=== PATIENT | female | born 1985 | race Caucasian/White ===

== ENCOUNTER 2017-11-20 18:27 | Emergency (ER) | payer SELFPAY ==
[~2017-11-20] VITALS: Ht 162.6 cm; Wt 70.5 kg
[~2017-11-20 18:27] MED LIST: ASPIRIN 32325 MG/TA1 PO; BCP TD; IBU400 MG PO; MOTRIN 200200 MG/TAB PO; PRENATAL1 TA3 PO; SPRINTEC 35 MCG1 TAB PO; TYLENOL 325MG325 MG PO; ZANTAC 7575 MG PO; ZOFRAN 4MG T4 MG/TAB PO; ZOFRAN8 MG PO
[2017-11-20 18:30] VITALS: BP 129/89; TEMP 98.2
[2017-11-20 19:31] VITALS: PULSE 88
== END 2017-11-20 19:31 | disposition home or self-care (01) ==
LOC: COL.ER 18:27
DX: K29.70 Gastritis, unspecified, without bleeding (principal); F17.210 Nicotine dependence, cigarettes, uncomplicated; Z90.49 Acquired absence of other specified parts of digestive tract

== ENCOUNTER 2021-05-28 13:34 | Inpatient (IN) | payer BC ==
[~2021-05-28] VITALS: Ht 12.7 cm; Wt 63.6 kg
[2021-05-28 14:46] LABS: BASO % 0.2 % (0.0-2.0); EOS # 0.1 K/mm3 (0.0-0.7); EOS % 0.3 % (0.0-4.0); GRAN % 83.9 % (42.2-75.2); LYMPH # 1.6 K/mm3 (1.2-3.4); LYMPH % 7.8 % (20.0-51.0); MEAN CELL VOLUME 97 fl (80.0-100.0); MEAN CORPUSCULAR HGB CONC 32 g/dl (33.0-37.0); MEAN PLATELET VOLUME 9.9 fl (7.4-10.4); MONO # 1.5 K/mm3 (0.1-0.6); MONO % 7.2 % (1.7-9.3); PLATELET COUNT 273 K/mm3 (130-400); RED BLOOD COUNT 2.83 M/mm3 (4.10-5.30); REDCELL DISTRIBUTION WIDTH-CV 20.7 % (11.5-14.5)
[2021-05-28 14:52] LABS: HEMATOCRIT 27.3 % (37.0-47.0); HEMOGLOBIN 8.8 g/dl (12.5-16.0); MEAN CORPUSCULAR HEMOGLOBIN 31 pg (27-31)
[2021-05-28 15:09] LABS: ALBUMIN 2.4 gm/dL (3.5-5.0); CALCIUM 8.1 mg/dL (8.4-10.2); CREATININE, serum 0.6 mg/dL (0.57-1.11); POTASSIUM 3.8 mmol/L (3.5-4.5); TOTAL PROTEIN 7.4 gm/dL (6.2-8.1)
[2021-05-28 15:20] LABS: BILIRUBIN,TOTAL 3.7 mg/dL (0.2-1.2)
[2021-05-28 16:24] LABS: INR 2.5 (0.8-3.0); PROTHROMBIN TIME 27.5 SECONDS (9.7-12.8)
[2021-05-28 16:24] LABS: COLLECTION METHOD CLEAN CATCH
[2021-05-28 16:39] LABS: MUCOUS Present (NOT PRESENT); PH 5 (5-8); URINE APPEARANCE Hazy (CLEAR/HAZY); URINE BACTERIA None Seen /hpf (NONE SEEN); URINE BILIRUBIN Negative (NEGATIVE); URINE BLOOD Negative (NEGATIVE); URINE COLOR Amber (YELLOW); URINE GLUCOSE Negative (NEGATIVE); URINE KETONE Negative (NEGATIVE); URINE LEUKOCYTE ESTERASE Negative (NEGATIVE); URINE NITRATE Negative (NEGATIVE); URINE PROTEIN(semi-quant) Negative (NEGATIVE)
[2021-05-28 16:43] LABS: TRICYCLIC ANTIDEPRESS URINE NEGATIVE
[2021-05-28] MEDS ORDERED: ATIVAN 0.50.5 MG/TAB PO (18:33)
[2021-05-28] MEDS ORDERED: AMOXICILLI250 MG/51 PO (18:34)
[2021-05-28 19:54] VITALS: BP 98/58; PULSE 72; TEMP 98.6
[2021-05-28] MEDS ORDERED: PROTONIX20 MG PO (20:23)
[2021-05-28 22:15] VITALS: BP 99/63; PULSE 110; TEMP 98.4
[2021-05-29] VITALS (12 sets, daily range): BP systolic 83–109; BP diastolic 43–62; PULSE 85–104; TEMP 97.7–98.8
--- NOTE | 2021-05-29 00:21 | NUR ---
Pt recieved prn ativan as ordered for scoring a 5 on the CIWA scale, Later around 2229, the patient was resting, but continued to complain of significant right sided pain and requested pain medication. Administered the prn morphine per orders and pt has been resting since. Vital signs were re-assessed and pt was satting at 78%, placed pt on 3L NC and she is not satting at 95%. Pt is sleepy, but is alert and oriented to speech when woken up. Told pt to take deep breaths and she followed commands. Pt's BP continues to run soft since coming up to the floor. Notified the provider of the vital signs, and the provider stated to leave the pt on 3L NC for the time being. No new medications will be administered at this time. Will continue to frequently monitor the pt's vital signs and titrate oxygen as needed.
--- NOTE | 2021-05-29 00:44 | NUR ---
Re-assessed Pt. Continues to sat at 95% on 3L NC. Respiration rate is 16. Pt is aleep, but is oriented alert and oriented when awoken, just drowsy. Will continue to re-assess and titrate oxygen as needed.
--- NOTE | 2021-05-29 02:08 | NUR ---
Pt remains on 3L NC. Satting at 93-95%. Still sleeping, but easily arousable to voice. Alert and oriented when awake. Repositioned pt in bed and she still cries of pain when she is moved. Refused to let us touch her right side. States she could barely turn to grab her water cup and began to cry. Pt resting back asleep now and appears more comfortable once repositioned. Will continue to monitor.
--- NOTE | 2021-05-29 04:07 | NUR ---
Pt remains on 3L NC, satting at 93-95% still. BP still running soft, systolic is 90's and diastolic is 40-60's. Pt denies dizziness or lightheadedness. Alert and oriented when awoken and is easily arrousable. RR is 16. Will continue to monitor.
--- NOTE | 2021-05-29 04:14 | NUR ---
Notified provider about pt's 90/48 BP. Discussed that the pt's pressures have remained soft throughout the evening, but that the pt denies SOB/lightheadedness/dizziness. No changes have been ordered. Will continue to monitor pt.
--- NOTE | 2021-05-29 05:02 | NUR ---
No new events overnight. Pt is still sleepy, but is easily aroused by voice and is alert and oriented when awake. When pt is awake, she continues to moan and cry in regards to her shoulder pain. Mood is still labile when awake. Pt goes from crying to irritable to happy. Prn ativan and morphine were administered only 1x throughout the shift at 2100 and 2230. Pt remains on 3L NC, satting at 93-95%. CIWA scoring continues every 2 hours. Pt has been scoring at a 3 this morning, whereas she scored at a 5 from when she came up from the ED. Vital signs have remained WNL. HR ranges from 90-100. BP's have ran soft overnight, provider was made aware, but pt has remained asymptomatic. Will continue to monitor pt and will continue to score CIWA every 2 hours.
[2021-05-29 07:19] LABS: BASO % 0.2 % (0.0-2.0); EOS # 0.1 K/mm3 (0.0-0.7); EOS % 0.7 % (0.0-4.0); GRAN # 12.7 K/mm3 (1.4-6.5); GRAN % 81.7 % (42.2-75.2); LYMPH # 1.7 K/mm3 (1.2-3.4); LYMPH % 10.6 % (20.0-51.0); MEAN CELL VOLUME 95 fl (80.0-100.0); MEAN CORPUSCULAR HGB CONC 32 g/dl (33.0-37.0); MEAN PLATELET VOLUME 9.9 fl (7.4-10.4); MONO % 6.3 % (1.7-9.3); PLATELET COUNT 239 K/mm3 (130-400); RED BLOOD COUNT 2.55 M/mm3 (4.10-5.30); REDCELL DISTRIBUTION WIDTH-CV 20.6 % (11.5-14.5)
[2021-05-29 07:24] LABS: HEMATOCRIT 24.3 % (37.0-47.0); HEMOGLOBIN 7.7 g/dl (12.5-16.0); MEAN CORPUSCULAR HEMOGLOBIN 30 pg (27-31)
[2021-05-29 07:27] LABS: INR 2.4 (0.8-3.0); PROTHROMBIN TIME 27.2 SECONDS (9.7-12.8)
[2021-05-29 07:43] LABS: BILIRUBIN,DIRECT 2.1 mg/dL (0.0-0.5); CALCIUM 7.8 mg/dL (8.4-10.2); CREATININE, serum 0.52 mg/dL (0.57-1.11); POTASSIUM 3.1 mmol/L (3.5-4.5); TOTAL PROTEIN 6.3 gm/dL (6.2-8.1)
--- NOTE | 2021-05-29 11:10 | NUR ---
SW met with patient to complete intake. Patient states that she lives with her John [phone]. Patient states that she does not utilize DME and is independent with ADL's. Patient states that her PCP is Dr. Tinoco and pharmacy is [facility]. Patient states that she has previously appointed a DPOA/HC who is Lindsay Daniels. Patient states that her plan is to return to her [place], and has not questions or concerns in its regards. SW will continue to follow. DC plan: home
--- NOTE | 2021-05-29 18:38 | NUR ---
PATIENT TEARFUL THROUGHOUT THE DAY D/T FAMILY ISSUES AND PAIN. OB CONSULTED AND WILL SEE PATIENT TONIGHT.
--- NOTE | 2021-05-29 19:15 | NUR ---
Initial shift assessment done- Dr. Díaz here to remove IUD- he had all his supplies- help reposition patient- removed IUD without any issues- no bleeding noted- pt was given a percocet per Dr. Díaz one time order,, pt states feeling better now that the IUD is out. Abd remains very rounded, semi firm- going for paracentesis tomorrow. Emotional- teary at times, talking about her family situation. States is having some right shoulder/arm pain-a sling ordered-will need to get on days.
[2021-05-30 00:09] VITALS: BP 98/54; PULSE 85; TEMP 98.5
[2021-05-30 04:32] VITALS: BP 97/51; PULSE 78; TEMP 97.8
--- NOTE | 2021-05-30 05:23 | NUR ---
Quiet night- still becomes very emotional when nurse in room, VSS, was medicated just once this shift with morphine for pain- states pain in abd, right arm, shoulder- up to bathroom to void with assistance.
[2021-05-30 07:37] VITALS: BP 91/49; PULSE 90; TEMP 98.1
--- NOTE | 2021-05-30 10:23 | NUR ---
Patient sitting on edge of bed upon entering the room. Wanting to know when she will be going home. Patient informed that after paracentesis, they will usually need to stay overnight for monitoring. Patient became tearful, but agreed to the procedure and signed consent. Patient requested PRN morphine and ativan. Patient c/o pain in right shoulder and at IV site.
--- NOTE | 2021-05-30 10:38 | NUR ---
Initial visit; Parents present, Youth Counselor offered God's blessings and left card. Patient very mannerly though decliend spiritual care.
[2021-05-30 10:59] LABS: BASO % 0.2 % (0.0-2.0); EOS # 0.1 K/mm3 (0.0-0.7); EOS % 0.5 % (0.0-4.0); GRAN # 11.2 K/mm3 (1.4-6.5); GRAN % 83.9 % (42.2-75.2); HEMATOCRIT 25.2 % (37.0-47.0); HEMOGLOBIN 8.2 g/dl (12.5-16.0); LYMPH # 1.2 K/mm3 (1.2-3.4); LYMPH % 8.7 % (20.0-51.0); MEAN CELL VOLUME 93 fl (80.0-100.0); MEAN CORPUSCULAR HEMOGLOBIN 30 pg (27-31); MEAN CORPUSCULAR HGB CONC 33 g/dl (33.0-37.0); MEAN PLATELET VOLUME 9.4 fl (7.4-10.4); MONO # 0.8 K/mm3 (0.1-0.6); MONO % 6.2 % (1.7-9.3); PLATELET COUNT 240 K/mm3 (130-400); RED BLOOD COUNT 2.71 M/mm3 (4.10-5.30); REDCELL DISTRIBUTION WIDTH-CV 19.9 % (11.5-14.5)
[2021-05-30 11:07] LABS: INR 2.6 (0.8-3.0); PROTHROMBIN TIME 28.8 SECONDS (9.7-12.8)
[2021-05-30 11:13] LABS: CALCIUM 8.1 mg/dL (8.4-10.2); CREATININE, serum 0.5 mg/dL (0.57-1.11); POTASSIUM 3.1 mmol/L (3.5-4.5)
[2021-05-30 11:54] VITALS: BP 103/62; PULSE 93; TEMP 97.9
[2021-05-30 12:35] LABS: PERITONEAL -POLYMORPHONUCLEAR 23.4 % (0-25)
[2021-05-30 15:27] VITALS: BP 99/51; PULSE 100; TEMP 98.4
--- NOTE | 2021-05-30 16:54 | NUR ---
Lost IV access. 4 attempts made, patient frustrated. Dr. Bermeo notified and stated that all medications would be made PO and that it was okay to not place another IV.
[2021-05-30] MEDS ORDERED: FOLIC ACID 11 MG/TA1 PO (17:35)
[2021-05-30] MEDS ORDERED: DUO-KAPS1 CAP PO (17:35)
[2021-05-30] MEDS ORDERED: CIPRO 500MG TA500 MG PO (17:37)
--- NOTE | 2021-05-30 18:39 | NUR ---
Patient requested pain medication, states "I am allergic to codones and tramadol, I can take percocet and thats it". Dr. Bermeo notified. Plan at this time is for the patient to discharge. Report given to [facility] shift lead.
--- NOTE | 2021-05-30 19:07 | NUR ---
Providedpt with discharge instructions. IV was previously taken out. No other IV's in place. Educated pt. She was anxious to go. Provided pt with her home medications that were brought in with her. Walked pt out to car with her . No further concerns.
== END 2021-05-30 19:07 | disposition home or self-care (01) | DRG 433 ==
LOC: COL.ER 13:34 → MEDICAL 17:06
PROVIDERS: Internal Medicine; Physician Assistant; ADMIT Internal Medicine
PROC: 0W9G3ZX Drainage of Peritoneal Cavity, Percutaneous Approach, Diagnostic (ICD-10-PCS; principal; 2021-05-28)
DX: K70.31 Alcoholic cirrhosis of liver with ascites (principal); E87.1 Hypo-osmolality and hyponatremia; F41.9 Anxiety disorder, unspecified; F17.210 Nicotine dependence, cigarettes, uncomplicated; K52.9 Noninfective gastroenteritis and colitis, unspecified; K42.9 Umbilical hernia without obstruction or gangrene; F32.A Depression, unspecified; D64.9 Anemia, unspecified; J45.909 Unspecified asthma, uncomplicated; S40.011A Contusion of right shoulder, initial encounter; T83.32XA Displacement of intrauterine contraceptive device, initial encounter; Y76.1 Therapeutic (nonsurgical) and rehabilitative obstetric and gynecological devices associated with adverse incidents; W18.30XA Fall on same level, unspecified, initial encounter; Y93.89 Activity, other specified; Y92.007 Garden or yard of unspecified non-institutional (private) residence as the place of occurrence of the external cause
CPT/HCPCS: 99223-AI; 99233-AI; 99239; J0696; J1170; J2060; J2270; Q9967

== ENCOUNTER 2021-06-20 16:23 | Emergency (ER) | payer BC ==
[~2021-06-20] VITALS: Ht 165.1 cm; Wt 59.1 kg
[~2021-06-20 16:23] MED LIST changes: +AMOXICILLI250 MG/51 PO; +ATIVAN 0.50.5 MG/TAB PO; +CIPRO 500MG TA500 MG PO; +DUO-KAPS1 CAP PO; +FOLIC ACID 11 MG/TA1 PO; +PROTONIX20 MG PO
[2021-06-20 17:13] VITALS: TEMP 97.8
[2021-06-20 18:16] LABS: BASO % 0.2 % (0.0-2.0); EOS % 0.1 % (0.0-4.0); GRAN # 11.7 K/mm3 (1.4-6.5); GRAN % 88.8 % (42.2-75.2); LYMPH # 0.8 K/mm3 (1.2-3.4); LYMPH % 6.1 % (20.0-51.0); MEAN CELL VOLUME 90 fl (80.0-100.0); MEAN CORPUSCULAR HGB CONC 32 g/dl (33.0-37.0); MEAN PLATELET VOLUME 9.1 fl (7.4-10.4); MONO # 0.6 K/mm3 (0.1-0.6); MONO % 4.3 % (1.7-9.3); PLATELET COUNT 320 K/mm3 (130-400); RED BLOOD COUNT 3.25 M/mm3 (4.10-5.30); REDCELL DISTRIBUTION WIDTH-CV 16.2 % (11.5-14.5)
[2021-06-20 18:17] LABS: HEMATOCRIT 29.3 % (37.0-47.0); HEMOGLOBIN 9.3 g/dl (12.5-16.0); MEAN CORPUSCULAR HEMOGLOBIN 29 pg (27-31)
[2021-06-20 18:23] LABS: INR 2.4 (0.8-3.0); PROTHROMBIN TIME 28.3 SECONDS (9.7-12.8)
[2021-06-20 18:35] LABS: ALBUMIN 2.5 gm/dL (3.5-5.0); BILIRUBIN,TOTAL 2.9 mg/dL (0.2-1.2); CALCIUM 8.3 mg/dL (8.4-10.2); CREATININE, serum 0.55 mg/dL (0.57-1.11); MAGNESIUM 1.3 mg/dL (1.6-2.6); POTASSIUM 3.2 mmol/L (3.5-4.5); TOTAL PROTEIN 7.1 gm/dL (6.2-8.1)
[2021-06-20 20:36] LABS: COLLECTION METHOD CLEAN CATCH
[2021-06-20 20:51] LABS: MUCOUS Present (NOT PRESENT); PH 6 (5-8); SQUAMOUS EPITHELIAL 20-50 /hpf (0-10); URINE APPEARANCE Cloudy (CLEAR/HAZY); URINE BACTERIA Rare /hpf (NONE SEEN); URINE BILIRUBIN Negative (NEGATIVE); URINE BLOOD Negative (NEGATIVE); URINE COLOR Amber (YELLOW); URINE GLUCOSE Negative (NEGATIVE); URINE KETONE Trace (NEGATIVE); URINE LEUKOCYTE ESTERASE Trace (NEGATIVE); URINE NITRATE Negative (NEGATIVE); URINE PROTEIN(semi-quant) 1+ (NEGATIVE)
[2021-06-20] MEDS ORDERED: ZOFRAN ODT4 MG PO (23:03)
[2021-06-20] MEDS ORDERED: BENTYL 10MG10 MG/CAP PO ×2 (23:03→23:04)
[2021-06-20 23:30] VITALS: BP 103/63; PULSE 93
[2021-07-04] MEDS ORDERED: LEXAPRO 5MG5 MG PO (12:42)
[2021-07-04] MEDS ORDERED: LASIX 40MG TABL40 MG PO (12:43)
[2021-07-04] MEDS ORDERED: ALDACTONE 100M100 MG PO (12:43)
[2021-07-04] MEDS ORDERED: FERRO-TIME325 MG PO (12:45)
== END 2021-06-20 23:31 | disposition home or self-care (01) ==
LOC: COL.ER 16:23
PROVIDERS: Emergency Medicine
DX: K72.10 Chronic hepatic failure without coma (principal); E87.6 Hypokalemia; E83.42 Hypomagnesemia; R18.8 Other ascites; D72.829 Elevated white blood cell count, unspecified; F17.210 Nicotine dependence, cigarettes, uncomplicated; Z32.02 Encounter for pregnancy test, result negative
CPT/HCPCS: C9113; J0500; J3010; Q9967

== ENCOUNTER → 2021-07-04 | Outpatient (CLI) | payer BC ==
[~2021-07-04] VITALS: Ht 165.1 cm; Wt 58.0 kg
[~2021-07-04] MED LIST changes: +ALDACTONE 100M100 MG PO; +BENTYL 10MG10 MG/CAP PO; +FERRO-TIME325 MG PO; +LASIX 40MG TABL40 MG PO; +LEXAPRO 5MG5 MG PO; +ZOFRAN ODT4 MG PO
[2021-07-04 12:34] VITALS: BP 92/57; PULSE 89; TEMP 98.3
[2021-07-04 13:20] VITALS: BP 91/54; PULSE 91
== END ==
LOC: COL.RAD 11:50
DX: K70.31 Alcoholic cirrhosis of liver with ascites (principal)
CPT/HCPCS: 19804

== ENCOUNTER 2021-07-12 11:00 | Observation (INO) | payer BC ==
[~2021-07-12] VITALS: Ht 165.1 cm; Wt 59.1 kg
[2021-07-12 11:33] LABS: BASO % 0.2 % (0.0-2.0); EOS # 0.3 K/mm3 (0.0-0.7); GRAN # 8.1 K/mm3 (1.4-6.5); GRAN % 77.2 % (42.2-75.2); LYMPH # 1.2 K/mm3 (1.2-3.4); LYMPH % 11.2 % (20.0-51.0); MEAN CELL VOLUME 86 fl (80.0-100.0); MEAN CORPUSCULAR HGB CONC 31 g/dl (33.0-37.0); MEAN PLATELET VOLUME 9.5 fl (7.4-10.4); MONO # 0.9 K/mm3 (0.1-0.6); MONO % 8.1 % (1.7-9.3); PLATELET COUNT 248 K/mm3 (130-400); RED BLOOD COUNT 3.16 M/mm3 (4.10-5.30); REDCELL DISTRIBUTION WIDTH-CV 16.3 % (11.5-14.5)
[2021-07-12 11:36] LABS: HEMATOCRIT 27.2 % (37.0-47.0); HEMOGLOBIN 8.5 g/dl (12.5-16.0); MEAN CORPUSCULAR HEMOGLOBIN 27 pg (27-31)
[2021-07-12 11:52] LABS: ALBUMIN 2.1 gm/dL (3.5-5.0); CALCIUM 8.6 mg/dL (8.4-10.2); CREATININE, serum 0.57 mg/dL (0.57-1.11); TOTAL PROTEIN 6.5 gm/dL (6.2-8.1)
[2021-07-12 11:54] LABS: COLLECTION METHOD CLEAN CATCH
[2021-07-12 11:55] LABS: POTASSIUM 2.8 mmol/L (3.5-4.5)
[2021-07-12 12:10] LABS: MUCOUS Present (NOT PRESENT); PH 7 (5-8); SQUAMOUS EPITHELIAL 0-2 /hpf (0-10); URINE APPEARANCE Clear (CLEAR/HAZY); URINE BACTERIA None Seen /hpf (NONE SEEN); URINE BILIRUBIN Negative (NEGATIVE); URINE BLOOD Negative (NEGATIVE); URINE COLOR Yellow (YELLOW); URINE GLUCOSE Negative (NEGATIVE); URINE KETONE Negative (NEGATIVE); URINE LEUKOCYTE ESTERASE Negative (NEGATIVE); URINE NITRATE Negative (NEGATIVE); URINE PROTEIN(semi-quant) Negative (NEGATIVE); URINE RBC 0-2 /hpf (0-2); URINE UROBILINOGEN >=4.0 (NEGATIVE)
[2021-07-12 14:34] LABS: INR 2.2 (0.8-3.0); PROTHROMBIN TIME 24.9 SECONDS (9.7-12.8)
[2021-07-12 14:44] VITALS: BP 95/55; PULSE 71; TEMP 97.8
--- NOTE | 2021-07-12 16:28 | NUR ---
Patient admitted to room 353 from ED. Admission paperwork completed. Medications, allergies, and pharmacy reviewed. Patient denies any pain, discomfort, SOA, or further needs at this time. Hospital policies reviewed. IV in RAC. Flushes, no signs of complications noted. Call light in reach.
[2021-07-12 17:09] LABS: HEMATOCRIT 24.4 % (37.0-47.0); HEMOGLOBIN 7.9 g/dl (12.5-16.0)
[2021-07-12 19:42] VITALS: BP 157/100; BP 93/51; PULSE 84; PULSE 88; TEMP 98.6
[2021-07-12 23:11] LABS: HEMATOCRIT 26.3 % (37.0-47.0); HEMOGLOBIN 8.2 g/dl (12.5-16.0)
[2021-07-12 23:51] VITALS: BP 92/47; PULSE 86; TEMP 98.6
[2021-07-13] VITALS (12 sets, daily range): BP systolic 83–108; BP diastolic 46–63; PULSE 66–104; TEMP 97.6–98.4
[2021-07-13 06:20] LABS: BASO % 0.1 % (0.0-2.0); EOS # 0.4 K/mm3 (0.0-0.7); EOS % 4.6 % (0.0-4.0); GRAN # 5.2 K/mm3 (1.4-6.5); GRAN % 66.2 % (42.2-75.2); LYMPH # 1.6 K/mm3 (1.2-3.4); LYMPH % 19.8 % (20.0-51.0); MEAN CELL VOLUME 87 fl (80.0-100.0); MEAN CORPUSCULAR HGB CONC 32 g/dl (33.0-37.0); MEAN PLATELET VOLUME 9.3 fl (7.4-10.4); MONO # 0.7 K/mm3 (0.1-0.6); MONO % 8.9 % (1.7-9.3); PLATELET COUNT 214 K/mm3 (130-400); RED BLOOD COUNT 2.76 M/mm3 (4.10-5.30); REDCELL DISTRIBUTION WIDTH-CV 16.3 % (11.5-14.5)
[2021-07-13 06:25] LABS: HEMATOCRIT 23.9 % (37.0-47.0); HEMOGLOBIN 7.6 g/dl (12.5-16.0); MEAN CORPUSCULAR HEMOGLOBIN 28 pg (27-31)
[2021-07-13 06:42] LABS: ALBUMIN 1.7 gm/dL (3.5-5.0); CALCIUM 7.5 mg/dL (8.4-10.2); CREATININE, serum 0.5 mg/dL (0.57-1.11); MAGNESIUM 1.4 mg/dL (1.6-2.6); PHOSPHOROUS 3.1 mg/dL (2.3-4.7)
[2021-07-13 06:49] LABS: POTASSIUM 2.8 mmol/L (3.5-4.5)
--- NOTE | 2021-07-13 07:18 | NUR ---
CRITICAL POTASSIUM CALLED TO FLOR DODD WHO READ BACK THE RESULTS.
--- NOTE | 2021-07-13 07:21 | NUR ---
Patient taken down for EGD by DANNY De Los Santos.
--- NOTE | 2021-07-13 08:23 | NUR ---
Tele nurse informed this RN that patient's heart rate dropped into the 30's, and then rebounded into the 70's. Patient hypotensive during EGD this AM. Current BP 90's/50's. FLOR Levy notified of this change. Orders to hold aldactone and lasix recieved. Currently replacing magnesium and potassium as ordered.
--- NOTE | 2021-07-13 09:14 | NUR ---
Scheduled medications given. Shift assessment preformed. Magnesium running as orderd. Patient A&O. BP soft, provider aware. Patient denies any pain, discomfort, SOA, N/V, or further needs at this time. Call light in reach. Dynamap attached for post op vitals.
[2021-07-13 11:21] LABS: HEMATOCRIT 25.6 % (37.0-47.0); HEMOGLOBIN 8.2 g/dl (12.5-16.0)
--- NOTE | 2021-07-13 11:41 | NUR ---
IMELDA met with the patient to discuss discharge plan. The patient kept her sleep mask on during intake. The patient lives in [place] with her , John ([phone]), and their [id number] son. She reports independence with ADLs and does not have any DME. The patient's PCP is Dr. Jake Tinoco and she receives her medications from [facility]. She reports no difficulties obtaining her meds. The patient does not have a DPOA-HC and she was not interested in completing one at this time. IMELDA addressed the patient's history of alcohol use. The patient states that she stopped drinking in February and has not had any concerns with it. The patient plans on returning home with her upon discharge. No additional needs at this time. *Discharge plan: home with family*
--- NOTE | 2021-07-13 15:18 | NUR ---
Phone order for roxycodone recieved from Jean-Claude. Order entered and administered.
[2021-07-13 17:03] LABS: HEMATOCRIT 24.8 % (37.0-47.0)
--- NOTE | 2021-07-13 17:50 | NUR ---
Jean-Claude aware of soft blood pressures. Instructed this RN that there is no need for interventions at this time. Patient asymptomatic. Patient's pain level reassessed following administraion of roxycodone. Patient states that her pain level is a 6/10, but noted to drift in and out of sleep during conversation. Call light in reach.
[2021-07-13 23:05] LABS: HEMATOCRIT 23.9 % (37.0-47.0); HEMOGLOBIN 7.6 g/dl (12.5-16.0)
[2021-07-14] VITALS: BP 122/54; PULSE 104; TEMP 98.5
[2021-07-14 04:42] VITALS: BP 95/56; PULSE 80; TEMP 98.7
[2021-07-14 06:38] LABS: BASO % 0.1 % (0.0-2.0); EOS # 0.3 K/mm3 (0.0-0.7); EOS % 3.4 % (0.0-4.0); GRAN # 6.2 K/mm3 (1.4-6.5); GRAN % 68.9 % (42.2-75.2); LYMPH # 1.7 K/mm3 (1.2-3.4); LYMPH % 18.7 % (20.0-51.0); MEAN CELL VOLUME 85 fl (80.0-100.0); MEAN CORPUSCULAR HGB CONC 32 g/dl (33.0-37.0); MEAN PLATELET VOLUME 9.2 fl (7.4-10.4); MONO # 0.8 K/mm3 (0.1-0.6); MONO % 8.7 % (1.7-9.3); PLATELET COUNT 216 K/mm3 (130-400); RED BLOOD COUNT 2.73 M/mm3 (4.10-5.30); REDCELL DISTRIBUTION WIDTH-CV 16.4 % (11.5-14.5)
[2021-07-14 06:42] LABS: HEMATOCRIT 23.2 % (37.0-47.0); HEMOGLOBIN 7.4 g/dl (12.5-16.0); MEAN CORPUSCULAR HEMOGLOBIN 27 pg (27-31)
[2021-07-14 07:04] LABS: ALBUMIN 1.7 gm/dL (3.5-5.0); CALCIUM 7.5 mg/dL (8.4-10.2); CREATININE, serum 0.51 mg/dL (0.57-1.11); MAGNESIUM 1.8 mg/dL (1.6-2.6); PHOSPHOROUS 2.7 mg/dL (2.3-4.7); POTASSIUM 3.3 mmol/L (3.5-4.5)
[2021-07-14 07:45] VITALS: BP 89/49; PULSE 88; TEMP 98.1
[2021-07-14] MEDS ORDERED: K-DUR20 MEQ PO (09:05)
[2021-07-14] MEDS ORDERED: PROTONIX 40MG T40 MG PO (09:05)
--- NOTE | 2021-07-14 09:31 | NUR ---
PT SITTING UP IN BED. MORNING MEDICATIONS GIVEN. SHIFT ASSESSMENT COMPLETED. PT REPORTS PAIN TO HER R SHOULDER. PT ABDOMEN IS DISTENDED AND FIRM, PT STATES IT DOES NOT USUALLY LOOK LIKE THIS. DENIES ANY OTHER CONCERNS OR NEEDS AT THIS TIME. WILL CONTINUE TO MONITOR.
--- NOTE | 2021-07-14 10:58 | NUR ---
DISCHARGE INSTRUCTIONS GIVEN, MIL AT BEDSIDE, ALL QUESTIONS ANSWERED. IV D/C. TELE D/C. WILL ESCORT PT OFF OF UNIT WITH BELONGINGS. WILL D/C FROM SYSTEM.
--- NOTE | 2021-07-14 12:02 | NUR ---
Nafisa: Religious Situation: Cryptologic Supervisor stopped by room on rounds Background: PT was very content and resting Assessment: PT had recieved a blessing yesterday Recommendation: Cryptologic Supervisor will follow up as needed
== END 2021-07-14 11:22 | disposition home or self-care (01) ==
LOC: COL.ER 11:00 → MEDICAL 13:04
PROVIDERS: Internal Medicine Gastroenterology; Nurse Practitioner Primary Care; ADMIT Internal Medicine
DX: K76.6 Portal hypertension (principal); K92.0 Hematemesis; D64.9 Anemia, unspecified; K70.31 Alcoholic cirrhosis of liver with ascites; I10 Essential (primary) hypertension; E87.6 Hypokalemia; E83.42 Hypomagnesemia; E43 Unspecified severe protein-calorie malnutrition; E80.7 Disorder of bilirubin metabolism, unspecified; F41.9 Anxiety disorder, unspecified; F17.210 Nicotine dependence, cigarettes, uncomplicated; Z79.899 Other long term (current) drug therapy
CPT/HCPCS: 99232-AI; C9113; G0378; J2270; J2405; J2704; J3010; J3475; J3480; J7030

== ENCOUNTER → 2021-08-01 | Outpatient (CLI) | payer BC ==
--- NOTE | 2021-07-27 14:39 | NUR ---
LMOM WITH INSTRUCTION AND CALL BACK NUMBER
[~2021-08-01] VITALS: Ht 165.1 cm; Wt 60.7 kg
[~2021-08-01] MED LIST changes: +K-DUR20 MEQ PO; +PROTONIX 40MG T40 MG PO
[2021-08-01 12:06] VITALS: BP 106/69; PULSE 101; TEMP 98.2
[2021-08-01 13:26] VITALS: BP 97/65; PULSE 88
== END ==
LOC: COL.RAD 11:12
DX: K70.31 Alcoholic cirrhosis of liver with ascites (principal)
CPT/HCPCS: 19804

== ENCOUNTER 2021-08-25 11:34 | Outpatient (CLI) | payer BC ==
[~2021-08-25] VITALS: Ht 165.1 cm; Wt 59.4 kg
[2021-08-25 12:13] VITALS: BP 101/66; PULSE 87; TEMP 98.4
[2021-08-25 13:45] VITALS: BP 88/54; PULSE 72; TEMP 98.3
[2021-08-25 14:08] VITALS: BP 89/53; PULSE 74
[2021-08-25 14:22] LABS: PERITONEAL -POLYMORPHONUCLEAR 46.6 % (0-25)
--- NOTE | 2021-08-25 16:00 | NUR ---
Pt was assisted out by wheelchair to her mother's car. IV DC'd, site wrapped with coban. Pt denies concerns at time of departure.
== END 2021-08-25 16:00 | disposition home or self-care (01) ==
LOC: COL.RAD 11:34
PROVIDERS: Physician Assistant
DX: K70.31 Alcoholic cirrhosis of liver with ascites (principal)
CPT/HCPCS: P9047